=== PATIENT | female | born 1990 | race Caucasian/White ===

== ENCOUNTER 2018-04-08 16:35 | Emergency (ER) | payer OTHER ==
[~2018-04-08] VITALS: Ht 157.5 cm; Wt 82.2 kg
[2018-04-08 16:40] VITALS: BP 139/68
--- NOTE | 2018-04-08 16:44 | NUR ---
PT AMBULATES TO BED 7
--- NOTE | 2018-04-08 16:45 | NUR ---
REPORT GIVEN TO DOUG PAULA
--- NOTE | 2018-04-08 17:02 | NUR ---
PT COMES TO ED C/O COUGH AND "CHEST TIGHTNESS WHEN COUGHING" THAT STARTED TODAY. PT IS SITTING IN CHAIR, RELAXED, AXO X4, PLACED ON O2 MONITOR -- SATS WNL. PT DENIES FEVER, N/V/DIZZNESS. NAD NOTED/STATED OTEHRWISE.
[2018-04-08 17:53] VITALS: BP 118/78
== END 2018-04-08 17:54 | disposition home or self-care (01) ==
LOC: MED 16:35
DX: J20.9 Acute bronchitis, unspecified (principal); R03.0 Elevated blood-pressure reading, without diagnosis of hypertension; F17.210 Nicotine dependence, cigarettes, uncomplicated
CPT/HCPCS: 99283

== ENCOUNTER 2018-10-18 18:46 | Emergency (ER) | payer MEDICAID, OTHER ==
[~2018-10-18] VITALS: Ht 157.5 cm; Wt 86.2 kg
[2018-10-18 18:52] VITALS: BP 126/73
[2018-10-18] MEDS ORDERED: KETOROLAC 60 MG/2 ML VIAL IM ONE (19:30)
[2018-10-18 20:11] VITALS: BP 124/80
== END 2018-10-18 20:11 | disposition home or self-care (01) ==
LOC: MED 18:46
DX: R10.9 Unspecified abdominal pain (principal); R19.7 Diarrhea, unspecified
CPT/HCPCS: 74022; 96372; 99283; J1885; 81002; 81025